=== PATIENT | female | born 1945 | race Hispanic/Latino ===

== ENCOUNTER 2017-10-08 10:57 | Outpatient (CLI) | payer MEDICARE | END 2017-10-08 10:58 | disposition home or self-care (01) | LOC: BICMAMMO 10:57 | PROVIDERS: ATTEND Family Medicine | DX: Z12.31 Encounter for screening mammogram for malignant neoplasm of breast (principal); Z13.820 Encounter for screening for osteoporosis; R92.1 Mammographic calcification found on diagnostic imaging of breast; Z80.3 Family history of malignant neoplasm of breast | CPT/HCPCS: 77063; 77067; 77080 ==

== ENCOUNTER 2019-08-12 09:46 | Outpatient (CLI) | payer MEDICARE ==
--- NOTE | 2019-08-12 11:03 | MMO ---
Bilateral MAMMO Bilat Screen [facility]. CLINICAL HISTORY: Patient is 74 years old and is seen for screening. The patient has the following family history of breast cancer: mother, at age 63. The patient has no personal history of cancer. The patient has a history of bilateral Explantation in September, - benign - bilateral implants removed and Rt implant had rupture and bilateral Implants in 1992 - benign. VIEWS: The views performed were: bilateral craniocaudal with tomosynthesis and bilateral mediolateral oblique with tomosynthesis. FILMS COMPARED: The present examination has been compared to prior imaging studies performed at [facility] on 08/20/2014, 09/30/2015, 10/05/2016 and 10/08/2017. This study has been interpreted with the assistance of computer-aided detection. MAMMOGRAM FINDINGS: The breasts are heterogeneously dense, which could obscure a lesion on mammography. There are no suspicious masses, suspicious calcifications, or new areas of architectural distortion. IMPRESSION: THERE IS NO MAMMOGRAPHIC EVIDENCE OF MALIGNANCY. A ROUTINE FOLLOW-UP MAMMOGRAM IN 1 YEAR IS RECOMMENDED. THE RESULTS OF THIS EXAM WERE SENT TO THE PATIENT. ACR BI-RADS Category 1 - Negative MAMMOGRAPHY NOTE: 1. A negative mammogram report should not delay a biopsy if a dominant of clinically suspicious mass is present. 2. Approximately 10% to 15% of breast cancers are not detected by mammography. 3. Adenosis and dense breasts may obscure an underlying neoplasm. Reported by: ENMA DELGADO MD Electonically Signed: [id number]
== END 2019-08-12 09:47 | disposition home or self-care (01) ==
LOC: BICMAMMO 09:46
PROVIDERS: ATTEND Family Medicine
DX: Z12.31 Encounter for screening mammogram for malignant neoplasm of breast (principal); Z91.89 Other specified personal risk factors, not elsewhere classified; Z98.82 Breast implant status; Z80.3 Family history of malignant neoplasm of breast
CPT/HCPCS: 77063; 77067

== ENCOUNTER 2020-03-04 09:21 | Outpatient (CLI) | payer MEDICARE ==
--- NOTE | 2020-03-04 10:38 | BD ---
DEXA SCAN: DATE: 03/04/2020. PROVIDED CLINICAL HISTORY: Postmenopausal screening. FINDINGS: RIGHT: Femoral Neck: 0.852 T-Score: 0 Total Femur: 1.204 T-Score: 2.3 LEFT: Femoral Neck: 0.843 T-Score: -0.1 Total Femur: 1.181 T-Score: 2 Impression: Calculated bone mineral density meets bone mineral density criteria for normal in both hips. POS: JACOB
== END 2020-03-04 09:22 | disposition home or self-care (01) ==
LOC: BICMAMMO 09:21
PROVIDERS: ATTEND Family Medicine
DX: Z13.820 Encounter for screening for osteoporosis (principal); Z78.0 Asymptomatic menopausal state
CPT/HCPCS: 77080

== ENCOUNTER 2020-04-08 08:04 | Outpatient (CLI) | payer MEDICARE ==
--- NOTE | 2020-04-08 08:27 | RAD ---
Lumbar spine 4 views flexion and extension HISTORY: Low back pain. FINDINGS: There are 5 lumbar type vertebrae. Bilateral pedicle screws and vertical rods at the L4-5 l evel without evidence of hardware complication. Other pedicles are intact. Grade 1 spondylolisthesis at the L4-5 level does not change upon flexion or extension. Vertebral body heights are maintained. Disc space narrowing at the L3-4 level. Minimal retrolisthesis on each view without abnormal translational motion. Osteophytosis throughout the facets. Prominent calcification over the arterial structures of the retroperitoneum. IMPRESSION : Postoperative and degenerative changes of the lumbar spine as detailed above without evidence of comp lication. Atherosclerosis.
== END 2020-04-08 08:05 | disposition home or self-care (01) ==
LOC: SCSRAD 08:04
PROVIDERS: ATTEND Neurological Surgery
DX: M54.5 Low back pain (principal); M47.816 Spondylosis without myelopathy or radiculopathy, lumbar region; I70.8 Atherosclerosis of other arteries; Z98.890 Other specified postprocedural states
CPT/HCPCS: 72110

== ENCOUNTER 2020-08-17 08:48 | Outpatient (CLI) | payer MEDICARE ==
--- NOTE | 2020-08-17 10:00 | MMO ---
Bilateral MAMMO Bilat Screen [facility]. CLINICAL HISTORY: Patient is 75 years old and is seen for screening. The patient has the following LUNG. The patient has no personal history of cancer. The patient has a history of bilateral Explantation in September, - benign - bilateral implants removed and Rt implant had rupture and bilateral Implants in 1992 - benign. VIEWS: The views performed were: bilateral craniocaudal with tomosynthesis and bilateral mediolateral oblique with tomosynthesis. FILMS COMPARED: The present examination has been compared to prior imaging studies performed at [facility] on 09/30/2015, 10/05/2016, 10/08/2017 and 08/12/2019. This study has been interpreted with the assistance of computer-aided detection. MAMMOGRAM FINDINGS: The breasts are heterogeneously dense, which could obscure a lesion on mammography. Benign calcifications are noted bilaterally. There are no suspicious masses, suspicious calcifications, or new areas of architectural distortion. IMPRESSION: THERE IS NO MAMMOGRAPHIC EVIDENCE OF MALIGNANCY. A ROUTINE FOLLOW-UP MAMMOGRAM IN 1 YEAR IS RECOMMENDED. THE RESULTS OF THIS EXAM WERE SENT TO THE PATIENT. ACR BI-RADS Category 2 - Benign finding MAMMOGRAPHY NOTE: 1. A negative mammogram report should not delay a biopsy if a dominant of clinically suspicious mass is present. 2. Approximately 10% to 15% of breast cancers are not detected by mammography. 3. Adenosis and dense breasts may obscure an underlying neoplasm. Reported by: MARYLOU COLES MD Electonically Signed: [id number]
== END 2020-08-17 08:49 | disposition home or self-care (01) ==
LOC: BICMAMMO 08:48
PROVIDERS: ATTEND Family Medicine
DX: Z12.31 Encounter for screening mammogram for malignant neoplasm of breast (principal); Z98.82 Breast implant status
CPT/HCPCS: 77063; 77067

== ENCOUNTER 2021-08-25 09:42 | Outpatient (CLI) | payer MEDICARE | END 2021-08-25 09:43 | disposition home or self-care (01) | LOC: BICMAMMO 09:42 | PROVIDERS: ATTEND Family Medicine | DX: Z12.31 Encounter for screening mammogram for malignant neoplasm of breast (principal); Z98.82 Breast implant status | CPT/HCPCS: 77063; 77067 ==

== ENCOUNTER 2023-05-31 10:02 | Outpatient (CLI) | payer MEDICARE | END 2023-05-31 10:03 | disposition home or self-care (01) | LOC: BICULT 10:02 | PROVIDERS: ATTEND Family Medicine | DX: E04.1 Nontoxic single thyroid nodule (principal) | CPT/HCPCS: 76536 ==